=== PATIENT | male | born 1980 | race Two or more races ===

== ENCOUNTER → 2017-01-20 | Outpatient (CLI) | payer OTHER | LOC: BMCIMAGING 07:54 | PROVIDERS: ATTEND Internal Medicine | DX: K76.0 Fatty (change of) liver, not elsewhere classified (principal); K82.4 Cholesterolosis of gallbladder ==

== ENCOUNTER 2018-04-03 03:04 | Emergency (ER) | payer OTHER ==
[2018-04-03] MEDS ORDERED: D50W 25 GM/50 ML SYR IVP ONE ×2 (03:11→03:17)
[2018-04-03] MEDS ORDERED: NS 1,000 ML IV ONE ×2 (03:13→03:37)
--- NOTE | 2018-04-03 03:13 | EDPHY ---
H & P Stated Complaint: possible SZ, hypoglycemia Time Seen by Provider: 04/03/18 03:13 HPI/ROS: HPI CHIEF COMPLAINT: Hypoglycemia HISTORY OF PRESENT ILLNESS: Patient is a 37-year-old male, history of insulin- dependent diabetes, presents emergency room by EMS for hypoglycemia. The patient took 43 units of insulin sliding scale before dinner tonight he then ate a burrito and a bag of chips and salsa he took an additional 23 units of insulin sliding scale. He then took his normal 18 units of Lantus at night. His woke up to him having seizure-like activity. They noted that his sugar was low they called 911. Upon arrival to the emergency room the patient is lucid, however his blood sugars 42 here. He denies any recent illness or fever recent complaints. He had a normal day today. Past Medical History: Insulin-dependent diabetes Past Surgical History: Denies surgical history Social History: Denies drugs alcohol tobacco. Family History: Noncontributory ROS REVIEW OF SYSTEMS: A comprehensive 10 point review of systems is otherwise negative aside from elements mentioned in the history of present illness. Exam Constitutional a appears well nontoxic no acute distress, triage nursing summary reviewed, vital signs reviewed, awake/alert. Eyes normal conjunctivae and sclera, EOMI, PERRLA. HENT normal inspection, atraumatic, moist mucus membranes, no epistaxis, neck supple/ no meningismus, no raccoon eyes. Respiratory clear to auscultation bilaterally, normal breath sounds, no respiratory distress, no wheezing. Cardiovascular rate normal, regular rhythm, no murmur, no edema, distal pulses normal. Gastrointestinal soft, non-tender, no rebound, no guarding, normal bowel sounds, no distension, no pulsatile mass. Genitourinary no CVA tenderness. Musculoskeletal no midline vertebral tenderness, full range of motion, no calf swelling, no tenderness of extremities, no meningismus, good pulses, neurovascularly intact. Skin pink, warm, & dry, no rash, skin atraumatic. Neurologic awake, alert and oriented x 3, AAOx3, moves all 4 extremities equally, motor intact, sensory intact, CN II-XII intact, normal cerebellar, normal vision, normal speech. Psychiatric normal mood/affect. Heme/Lymph/Immune no lymphadenopathy. Differential Diagnosis: Includes but is not limited to in a particular order insulin overdose, insulin overdose by accident, hypoglycemia leading to seizure , electrolyte disturbance, infection Medical Decision Making: Plan for this patient his blood sugars noted to be low at 42 upon arrival will feed him, additionally give him a amp of D50. Will monitor him closely for further symptoms of hypoglycemia. Re-evaluation: [id number]: Patient has been resting comfortably here in the emergency room in no acute distress. He has been monitored here for multiple hours his blood sugar has improved in stayed stable throughout the ER visit. His blood sugars been slowly increasing. This was after dextrose as well as eating. He has not been hypoglycemic here. Blood work has been reviewed. Was noted he had anion gap and low bicarb from most likely seizure activity from hyperglycemia. He feels comfortable going home. I do recommend he takes close monitoring of his blood sugar today. Eats appropriately. Additionally return emergency room if there is any worsening symptoms questions or concerns including low blood sugar. Source: Patient, EMS - Personal History Current Tetanus/Diphtheria Vaccine: Yes Current Tetanus Diphtheria and Acellular Pertussis (TDAP): Yes Tetanus Vaccine Date: 2014 - Medical/Surgical History Hx Asthma: No Hx Chronic Respiratory Disease: No Hx Diabetes: Yes Hx Cardiac Disease: No Hx Renal Disease: No Hx Cirrhosis: No Hx Alcoholism: No Hx HIV/AIDS: No Hx Splenectomy or Spleen Trauma: No Other PMH: diabetes, SZ with low glucose - Social History Smoking Status: Never smoked Constitutional: Initial Vital Signs Temperature (C) 36.7 C 04/03/18 03:07 Heart Rate 107 H 04/03/18 03:07 Respiratory Rate 16 04/03/18 03:07 Blood Pressure 153/83 H 04/03/18 03:07 O2 Sat (%) 95 04/03/18 03:07 O2 Delivery Mode Room Air Allergies/Adverse Reactions: No Known Allergies Allergy (Verified 05/18/15 04:21) Home Medications: Medication Instructions Recorded Humalog 08/10/11 Lantus 08/10/11 Medical Decision Making - Data Points Laboratory Results: Laboratory Results 04/03/18 03:17 04/03/18 03:17 04/03/18 04/03/18 04/03/18 04:58 04:50 03:46 WBC RBC Hgb Hct MCV MCH MCHC RDW Plt Count MPV Neut % (Auto) Lymph % (Auto) [place] % (Auto) Eos % (Auto) Baso % (Auto) Nucleat RBC Rel Count Absolute Neuts (auto) Absolute Lymphs (auto) Absolute Monos (auto) Absolute Eos (auto) Absolute Basos (auto) Absolute Nucleated RBC Immature Gran % Seg Neutrophils % Band Neutrophils % Lymphocytes % Monocytes % Eosinophils % Basophils % Metamyelocytes % Myelocytes % Promyelocytes % Blast Cells % Immature Gran # Absolute Seg Neuts Absolute Band Neuts Absolute Lymphocytes Absolute Monocytes Absolute Eosinophils Absolute Basophils Absolute Metamyelocyte Absolute Myelocytes Absolute Promyelocytes Absolute Plasma Cells Atypical Lymphocytes Absolute Blast Cells Plasma Cells % Platelet Estimate Hypochromasia Echinocytes Smear Review By Sodium Potassium Chloride Carbon Dioxide Anion Gap BUN Creatinine Estimated GFR Glucose POC Glucose 170 mg/dL H mg/dL 106 mg/dL H mg/dL (70-100) (70-100) Calcium Total Bilirubin Conjugated Bilirubin Unconjugated Bilirubin AST ALT Alkaline Phosphatase Total Protein Albumin Urine Color PALE YELLOW Urine Appearance CLEAR Urine pH 5.0 (5.0-7.5) Ur Specific [place] 1.010 (1.002-1.030) Urine Protein NEGATIVE (NEGATIVE) Urine Ketones NEGATIVE (NEGATIVE) Urine Blood NEGATIVE (NEGATIVE) Urine Nitrate NEGATIVE (NEGATIVE) Urine Bilirubin NEGATIVE (NEGATIVE) Urine Urobilinogen NEGATIVE EU EU (0.2-1.0) Ur Leukocyte Esterase NEGATIVE (NEGATIVE) Urine RBC 1-3 /hpf /hpf (0-3) Urine WBC 0-1 /hpf /hpf (0-3) Ur Epithelial Cells NONE SEEN /lpf /lpf (NONE-1+) Urine Mucus TRACE /lpf /lpf (NONE-1+) Urine Glucose 3+ H (NEGATIVE) 04/03/18 04/03/18 04/03/18 03:17 03:17 03:10 WBC 12.19 10^3/uL H 10^3/uL (3.80-9.50) RBC 5.38 10^6/uL 10^6/uL (4.40-6.38) Hgb 15.2 g/dL g/dL (13.7-17.5) Hct 49.4 % % (40.0-51.0) MCV 91.8 fL fL (81.5-99.8) MCH 28.3 pg pg (27.9-34.1) MCHC 30.8 g/dL L g/dL (32.4-36.7) RDW 13.6 % % (11.5-15.2) Plt Count 419 10^3/uL H 10^3/uL (150-400) MPV 9.1 fL fL (8.7-11.7) Neut % (Auto) Not Reported Lymph % (Auto) Not Reported [place] % (Auto) Not Reported Eos % (Auto) Not Reported Baso % (Auto) Not Reported Nucleat RBC Rel Count Not Reported Absolute Neuts (auto) Not Reported Absolute Lymphs (auto) Not Reported Absolute Monos (auto) Not Reported Absolute Eos (auto) Not Reported Absolute Basos (auto) Not Reported Absolute Nucleated RBC Not Reported Immature Gran % Not Reported Seg Neutrophils % 32.7 % % Band Neutrophils % 0 % % Lymphocytes % 52.7 % % Monocytes % 3.7 % % Eosinophils % 9.1 % % Basophils % 1.8 % % Metamyelocytes % 0 % % Myelocytes % 0 % % Promyelocytes % 0 % % Blast Cells % 0 % % Immature Gran # Not Reported Absolute Seg Neuts 3.99 10^/uL 10^/uL (1.70-6.50) Absolute Band Neuts 0.00 10^3/uL 10^3/uL (0.00-0.70) Absolute Lymphocytes 6.42 10^3/uL H 10^3/uL (1.00-3.00) Absolute Monocytes 0.45 10^3/uL 10^3/uL (0.30-0.80) Absolute Eosinophils 1.11 10^3/uL H 10^3/uL (0.03-0.40) Absolute Basophils 0.22 10^3/uL H 10^3/uL (0.02-0.10) Absolute Metamyelocyte 0.00 10^3/mL 10^3/mL (0.00-0.00) Absolute Myelocytes 0.00 10^3/mL 10^3/mL (0.00-0.00) Absolute Promyelocytes 0.00 10^3/uL 10^3/uL (0.00-0.00) Absolute Plasma Cells 0.00 10^3/uL 10^3/uL (0.00-0.00) Atypical Lymphocytes 1+ H Absolute Blast Cells 0.00 10^3/uL 10^3/uL (0.00-0.00) Plasma Cells % 0 % % Platelet Estimate INCREASED H (ADEQ) Hypochromasia 1+ H Echinocytes 1+ H Smear Review By Pending Sodium 147 mEq/L H mEq/L (135-145) Potassium 4.1 mEq/L mEq/L (3.3-5.0) Chloride 103 mEq/L mEq/L (97-110) Carbon Dioxide 11 mEq/l L mEq/l (22-31) Anion Gap 33 mEq/L H mEq/L (8-16) BUN 15 mg/dL mg/dL (7-23) Creatinine 1.2 mg/dL mg/dL (0.7-1.3) Estimated GFR > 60 Glucose 56 mg/dL L mg/dL (70-100) POC Glucose 42 mg/dL L mg/dL (70-100) Calcium 9.6 mg/dL mg/dL (8.5-10.4) Total Bilirubin 0.5 mg/dL mg/dL (0.1-1.4) Conjugated Bilirubin 0.4 mg/dL mg/dL (0.0-0.5) Unconjugated Bilirubin 0.1 mg/dL mg/dL (0.0-1.1) AST 34 IU/L IU/L (17-59) ALT 44 IU/L IU/L (21-72) Alkaline Phosphatase 88 IU/L IU/L (38-126) Total Protein 8.3 g/dL H g/dL (6.3-8.2) Albumin 5.1 g/dL H g/dL (3.5-5.0) Urine Color Urine Appearance Urine pH Ur Specific [place] Urine Protein Urine Ketones Urine Blood Urine Nitrate Urine Bilirubin Urine Urobilinogen Ur Leukocyte Esterase Urine RBC Urine WBC Ur Epithelial Cells Urine Mucus Urine Glucose Medications Given: Discontinued Medications Dextrose (Dextrose 50% Syringe) 25 gm IVP EDNOW ONE Stop: 04/03/18 03:18 Last Admin: 04/03/18 03:20 Dose: 25 gm Sodium Chloride (Ns) 1,000 mls @ 0 mls/hr IV EDNOW ONE; Wide Open PRN Reason: Protocol Stop: 04/03/18 03:14 Last Admin: 04/03/18 03:20 Dose: 1,000 mls Sodium Chloride (Ns) 1,000 mls @ 0 mls/hr IV ONCE ONE PRN Reason: Wide Open Stop: 04/03/18 03:38 Last Admin: 04/03/18 03:51 Dose: 1,000 mls Point of Care Test Results: Chemistry 04/03/18 04/03/18 04/03/18 04:58 03:46 03:10 POC Glucose 170 mg/dL H mg/dL 106 mg/dL H mg/dL 42 mg/dL L mg/dL (70-100) (70-100) (70-100) Departure - Departure Disposition: Home, Routine, Self-Care Clinical Impression: Hypoglycemia Condition: Good Instructions: Hypoglycemia in a Person with Diabetes (ED) Additional Instructions: 1. Make sure to monitor blood sugar closely today. 2. Stay well-hydrated and eat food today. Watch her sugar closely. 3. If he develops recurrence of low blood sugar do not feel well return to the emergency room. Referrals: NONE *PRIMARY CARE P,. [Primary Care Provider] - As per Instructions
[2018-04-03 03:24] LABS: PLATELET COUNT 419 10^3/uL (150-400)
[2018-04-03 06:29] VITALS: BP 125/60
== END 2018-04-03 06:42 | disposition home or self-care (01) ==
LOC: EDUNIT#
DX: E11.649 Type 2 diabetes mellitus with hypoglycemia without coma (principal); E86.9 Volume depletion, unspecified; Z79.4 Long term (current) use of insulin
CPT/HCPCS: 96374

== ENCOUNTER → 2018-12-08 | Outpatient (CLI) | payer OTHER ==
[~2018-12-08] MED LIST: IOHEXOL 300 mgI/ML (OMNIPAQUE) 150 ML BTL IV ONE
== END ==
LOC: FIMAGING 14:55
PROVIDERS: ATTEND Internal Medicine
DX: N40.1 Benign prostatic hyperplasia with lower urinary tract symptoms (principal); R31.9 Hematuria, unspecified
CPT/HCPCS: Q9967